=== PATIENT | female | born 1990 | race African-American/Black ===

== ENCOUNTER 2016-11-02 17:46 | Emergency (ER) | payer MEDICAID ==
[2016-11-02] MEDS ORDERED: ONDANSETRON 4 MG VIAL ONE (21:03)
[2016-11-02] MEDS ORDERED: MORPHINE 4 MG/ML SYR ONE (21:03)
[2016-11-02] MEDS ORDERED: SODIUM CHLORIDE 0.9% 1,000 ML ONE (21:04)
== END 2016-11-02 22:18 | disposition home or self-care (01) ==
LOC: ER 17:46
CPT/HCPCS: 74176; 87077; 87186; 96361; 96374; 96375